=== PATIENT | female | born 1980 | race Caucasian/White ===

== ENCOUNTER 2023-04-23 11:09 | Outpatient (OUT) | payer OTHER, SELFPAY ==
--- NOTE | 2023-04-23 | XR_ITS ---
The [address] [address] Patient Name: STEFANIE PASCUAL MRN: [id number] date: 1980 Sex: F Assigned Patient Location: [facility] Current Patient Location: [facility] Accession/Order Number: [id number] Exam Date: 04/23/2023 11:48 Report Date: 04/23/2023 12:41 At the request of: RENARD RICHARDSON Procedure: XR foot NIR min 3V EXAMINATION: XR foot NIR min 3V HISTORY: BILATERAL FOOT PAIN COMPARISON: No relevant comparison available. FINDINGS: RIGHT FINDINGS: BONES: Normal. No significant arthropathy or acute abnormality. Minimal plantar enthesopathic spurring of the calcaneus SOFT TISSUES: Negative. No visible soft tissue swelling. OTHER: Negative. LEFT FINDINGS: BONES: Normal. No significant arthropathy or acute abnormality. SOFT TISSUES: Negative. No visible soft tissue swelling. OTHER: Negative. XR/XR foot NIR min 3V IMPRESSION: RIGHT CONCLUSION: Minimal plantar enthesopathic spurring of the calcaneus LEFT CONCLUSION: No acute abnormality Electronically authenticated by: MAYRA DELUCA Date: 04/23/2023 12:41
== END 2023-04-23 11:10 | disposition home or self-care (01) ==
LOC: RAD 11:09
PROVIDERS: PCP Nurse Practitioner Family; Visit Provider Podiatrist Foot & Ankle Surgery
DX: M79.671 Pain in right foot (principal); M79.672 Pain in left foot
CPT/HCPCS: 73630

== ENCOUNTER 2023-05-07 06:54 | Outpatient (RCR) | payer OTHER, SELFPAY | END 2023-06-04 15:41 | disposition home or self-care (01) | LOC: PT 06:54 | PROVIDERS: PCP Nurse Practitioner Family; Visit Provider Podiatrist Foot & Ankle Surgery | DX: M76.62 Achilles tendinitis, left leg (principal); M72.2 Plantar fascial fibromatosis; M79.671 Pain in right foot; M79.672 Pain in left foot | CPT/HCPCS: 97010; 97014; 97035; 97110; 97140; 97161 ==

== ENCOUNTER 2025-03-01 07:22 | Outpatient (OUT) | payer OTHER, SELFPAY ==
--- OUTSIDE RECORDS SUMMARY | 2025-02-15 08:00 | XMS_ITS ---
Author Organization The [facility] in [place] Address [address] [place] [address] Care Team Providers Care Tail Edger Name Role Phone Saskia Fry Primary Care Provider Allergies Allergen (clinical drug ingredient) Drug/Non Drug Allergy documented on EMR Reaction Allergy Type Onset Date Status Bee StingUnknownAllergyActive REASON FOR VISIT Wellness, Self Pay Medications Medication SIG (Take, Route, Frequency, Duration) Notes Start Date End Date Status Sertraline HCl 100 MG 1.5 tablet Orally Once a d ay; Duration: 30 days Active Social History Tobacco Use: Social History Observation Description Date Details (start date - stop date) Never Smoker NA - NA Tobacco Use/Smoking Question Answer Notes Patient is a nonsmoker AUDIT-C (Standard) Question Answer Notes Did you have a drink containing alcohol in the p ast year? No Rmqcnn9VzxvyytmopxsfnNstpundv Problems Problem Type SNOMED Code ICD Code Onset Dates Problem Status W/U Status Risk Notes Problem Mixed anxiety and de pressive disorder (279352665) Anxiety and depression (F41.8) Activeconfirmed Vital Signs Weight 144.0 lbs 02/15/2025 Height 61 in 02/15/2025 Blood pressure systolic 122 mm Hg 02/16/20 25 Blood pressure diastolic 82 mm Hg 025 BMI 27.21 kg/m2 02/15/2025 Encounters Encounter Location Date Provider Diagnosis [facility] [address] [place] [address] 02/15/2025 Saskia Fry Wellness examination Z00.00 and Anxiety and depression F41.8 Assessments Encounter Date Diagnosis (ICD Code) Assessment Notes Treatment Notes Treatment Clinical Notes Section Notes 02/15/2025 Wellness examination (ICD-10 - Z 00.00) ROS done exam done encouraged mammogram and pap 02/15/2025nxiety and depression (ICD-10 - F41.8) continue medication feeling well Plan Of Treatment Medication Medication Name Sig Start Date Stop Date Notes Sertraline HCl 100 MG 1.5 tablet Orally Once a d ay; Duration: 30 days Treatment Notes Assessment Notes Wellness examination ROS done exam done encouraged mammogram and pap Anxiety and depression continue medication feeling well Pending Test Test Name Order Date HEMOGLOBIN A1C (GLYCO) 02/15/2025 IRON, TOTAL 02/15/2025 LIPID PANEL (CHOL/TRIG/HDL/LDL) 02/16/20 25 VITAMIN D, 25 LEVEL (TOTAL) 02/15/2025 Insulin Level 02/15/2025 VITAMIN B12 02/15/2025 THYROID PANEL (T4/TSH/FREE T3) Vitamin D 02/15/2025 CMP (COMP MET DOMINGUEZ) w/eGFR CKD-EPI 2024 CBC WITH DIFF 02/15/2025 Next Appt Details Follow Up: 1 Year,prn, Reaso n: Progress Notes * Catherine MORTON VDOB:[birth year] (44 yo F)Acc No.[id number]:02/15/2025 Progress Note Patient: Catherine HARDWICK V :?Saskia Fry ([facility]), CNPDOB:1980 ???Age:44 Y???Sex:FemaleDate:02/15/2025Phone:[phone]:[address] [place], [place] [id number] In:01:10 PM ESTCheck Out:01:30 PM EST Subjective: * Chief Complaints: * 1 . Wellness. 2. Self Pay. * HPI: ???General:? 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 * ROS: ???General/Constitutional:?Fever?denies.?Headache?denies.?Weight loss denies.?Ophthalmologic:?Discharge?denies.?Eye Pain?denies.?Itching and redness?denies.?ENT:?Nasal discharge?denies.?Nasal congestion?denies. Sore throat?denies.?Cardiovascular:?Chest tightness/ heavy pressure?denies.?Rapid heart rate?denies.?Swelling of extremities?denies.?Chest pain?denies.?Respiratory:?Productive cough?denies.?Chest pain?denies.?Cough?denies.?Shortness of breath?denies.?Wheezing?denies.?Gastrointestinal:?Abdominal pain?denies.?Constipation?admits, chronic.?Decreased appetite?denies.?Diarrhea?denies.?Nausea?denies. Vomiting?denies.?Genitourinary:?Urinary incontinence?denies.?Painful urination?denies.?Musculoskeletal:?Back pain?denies.?Neck pain?denies.?Muscle aches?denies.?Skin:?Rash?denies.?Skin lesion(s)?denies.? * Active Problem List F32.9 Depression Modified On:02/07/2023U Status:wfqrrmgesA20.9Anxiety disorder, unspecified Modified On:02/08/2023U Status:gvlttffroY63.671Pain in right foot Modified On:04/23/2023U Status:figmahphuS76.672Pain in left foot Modified On:04/23/2023U Status:cubqfvgmfV36.2Plantar fascial fibromatosis Modified On:04/23/2023/U Status:xbebbejhhX84.62Achilles tendinitis, left leg Modified On:01/30/2024W/U Status:chhlegfxzD70.61Achilles tendinitis, right leg Modified On:04/23/2023/U Status:pmdtmgbivD29.572Contracture, left ankle Modified On:04/23/2023/U Status:unglapavqS33.571Contracture, right ankle Modified On:04/23/2023W/U Status:bxvxeuajuI02.8Anxiety and depression Modified On:02/15/2025W/U Status:confirmed * Medical History: S ore throat, Depression. * Surgical History: h ysterectomy 10/2020, cystoscopy 10/2020. * Hospitalization/Major Diagno stic Procedure: D enies Past Hospitalization. * Family History: F ather: alive 74 yrs. M other: alive 73 yrs. S ister(s): alive. S on(s): alive.?Daughter(s): alive. 1 sister(s) - healthy. 1 son(s) , 2 daughter(s) - healthy. . * Social History: ???Tobacco Use:?Tobacco Use/Smoking?Patient is a?nonsmoker ???Drug/Alcohol:?AUDIT-C (Standard)?Did you have a drink containing alcohol in the past year??No ?Points?0 ?Interpretation?Negative * Medications: T aking Sertraline HCl 100 MG Tablet 1.5 tablet Orally Once a day , Discontinued Meloxicam 15 MG Tablet 1 tablet Orally Once a day , Medication List reviewed and reconciled with the patient * Allergies: B ee Sting. Objective: * Vitals: W t:144.0lbs, Ht: 61 in, BP:122/82mm Hg, BMI:27.21Index, Ht-cm: 154.94 cm, Wt-k.32 kg. * Examination: ???General Examinations: ?GENERAL APPEARANCE:?alert and oriented,?in no acute distress.?EYES:?conjunctiva normal, sclera non-icteric.?EARS:?external auditory canals are patent. Tympanic membranes are pearly cartagena and mobile.?NOSE:?normal external appearance.?LUNGS:?clear to auscultation bilaterally.?CARDIO:?regular rate and rhythm, S1, S2 normal, no murmurs, no edema.?ABDOMEN:?soft, nontender.?MUSCULOSKELETAL:?Gait and station normal.?SKIN:?warm and dry.? Assessment: * Assessment: 1.?Anxiety and depression - F41.8 (Primary)???2.?Wellness examination - Z00 .00??? Plan: * Treatment: Refill Sertraline HCl Tablet, 100 MG, 1.5 tablet, Orally, Once a day, 30 days, 45 Tablet, Refills 11.?? Notes: continue medication feeling well??2.?Wellness examination?LAB: HEMOGLOBIN A1C (GLYCO) ?LAB: IRON, TOTAL ?LAB: LIPID PANEL (CHOL/TRIG/HDL/LDL) ?LAB: VITAMIN D, 25 LEVEL (TOTAL) ?LAB: Insulin Level ?LAB: VITAMIN B12 ?LAB: THYROID PANEL (T4/TSH/FREE T3) ?LAB: Vitamin D ?LAB: CMP (COMP MET DOMINGUEZ) w/eGFR CKD-EPI ?LAB: CBC WITH DIFF Notes: ROS done exam done encouraged mammogram and pap?? * Procedure Codes: 3 079F DIAST BP 80-89 MM HG, 3074F SYST BP LT 130 MM HG * Preventive Medicine: ??Screenings/Counseling:?BMI ACTION PLAN?Above Normal BMI Follow-up?Dietary management education, guidance, and counseling * Follow Up: 1 Year,prn * * Electronically signed by Saskia Fry PATIENT CARRIER, OPEN CLAIMS REPRESENTATIVE.CARD CUTTER HELPER.[id number] on 02/17/2025 at 08:55 AM ESTSign off status: CompletedVisit Status:?CHK (Check Out) true * Provider: Renee Fry (TTC), CARD CUTTER HELPER Date: 04/17/2024 Generated for Printing/Faxing/eTransmitting on:?03/01/2025 07:30 AM EST History and Physical Notes * HPI (History of Present Illness) CategorySub-CategoryDetailNotesCategory 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 Tympanic membranes are pearly cartagena and mobileNOSE:normal external appearanceTHROAT:CARDIO:regular rate and rhythm, S1, S2 normal, no murmurs, no edemaLUNGS:clear to auscultation bilaterallyABDOMEN:soft, nontenderSKIN:warm and dryBACK:MUSCULOSKELETAL:Gait and station normalLYMPH NODES:
--- OUTSIDE RECORDS SUMMARY | 2025-03-01 07:29 | XMS_ITS | CCD ---
Author Organization [facility] CliniSymt Care Team Providers Care Export Sales Assistant Name Role Phone YOBANI CASTRO Admitting Unavailable YOBANI CASTRO Attending Unavailable YOBANI CASTRO Primary Care Unavailable DR LAYO ADAN Consulting Unavailable YOBANI CASTRO Consulting Unavailable Allergies Allergy ClassificationReported Allergen(s)Allergy TypeDate of OnsetReaction(s) Facility (1 source)bee venomDrug allergy (disorder)[facility] Repository Problems Problem ClassificationProblemDateDocumented DateEpisodic/ChronicOther screening for suspected conditions (not mental disorders or infectious disease) (4 sources)Encounter for screening mammogram for malignant neoplasm of breast; Translations: [ENC SCR MAMMO MALIG NEOPLASM BREAST]Onset: 14-73-2457Gswudaga Results Test NameValueInterpretationReference RangeFacilityMG MAMM SCREEN 3D NIR CADon [id number] MAMM SCREEN 3D NIR CADPatient: STEFANIE PASCUAL V. Exam Date: 08/02/2022 : 1980 Gender:F Ordering : YOBANI CASTRO [facility] Admission #: [id number] Family : Order #: [id number] CLICK HERE TO VIEW EXAM RADIOLOGY REPORT PROCEDURE: MAMMOGRAM SCREENING 3D BILATERAL CAD COMPARISON: MG MAMM SCREEN NIR W CAD, 10/21/2018. MG MAMM SCREEN 3D NIR CAD, 09/12/2020. INDICATIONS: Screening mammography Calculator Name NCI Breast Cancer Risk Assessment Tool 5 Year Breast Cancer Risk Not Reported. Lifetime Breast Cancer Risk Not Reported. Personal Breast Cancer No Personal Ovarian Cancer No Treatments None Family Cancers None LOCATION: [facility] BREAST COMPOSITION: Heterogeneously dense,which may obscure small masses. FINDINGS: DIAGNOSTIC CATEGORY 1--NEGATIVE. RIGHT BREAST: No significant suspicious finding. No significant change has occurred. LEFT BREAST: No significant suspicious finding. No significant change has occurred. RECOMMENDATIONS: ROUTINE MAMMOGRAM AND CLINICAL EVALUATION IN 12 MONTHS. PLEASE NOTE: A NORMAL MAMMOGRAM DOES NOT EXCLUDE THE POSSIBILITY OF BREAST CANCER. A CLINICALLY SUSPICIOUS PALPABLE LUMP SHOULD BE BIOPSIED. Dictated by: Layo Adan M.D. on 08/03/2022 at 06:58 Approved by: Layo Adan M.D. on 08/03/2022 at 07:01[facility] HospitalPhys[facility] Referralon [id number] Referral [id number]#1.00CD:[address] [place], [place] [address]Operative Reporton [id number] Report [id number]#1.00CD:[address] [place] [address] Encounters Encounter DateEncounter TypeCare ProviderFacilityStart: 08-02-2022 End: 20-68-5591qpbjghxvwnDAIGML CRAMERFacility:H1 Payers DatePayer CategoryPayerPolicy [id number] Summary Purpose Family History No Family History Records FoundNo Family History Records Found Advance Directives No Advanced Directives Records FoundNo Advanced Directives Records Found Additional Source Comments INFORMATION SOURCE (unrecogn ized section and content) DATE CREATED AUTHOR 12/10/2020 [facility] DATE CREATED AUTHOR AUTHOR'S ORGANIZ ATION 08/06/2022 [facility] FOR RECORDS PERTAINING TO PATIENTS WHO ARE OR HAVE BEEN ENROLLED IN A CHEMICAL DEPENDENCY/SUBSTANCEABUSE PROGRAM, SOME INFORMATION MAY BE OMITTED. This clinical summary was aggregated from multiple sources. Caution should be exercised in using it in the provision of clinical care. This summary normalizes information from multiple sources, and as a consequence, information in this document may materially change the coding, format and clinical context of patient data. In addition, data may be omitted in some cases. CLINICAL DECISIONS SHOULD BE BASED ON THE PRIMARY CLINICAL RECORDS. [facility] [employer] provides no warranty or guarantee of the accuracy or completeness of information in this document.
--- OUTSIDE RECORDS SUMMARY | 2025-03-01 07:31 | XMS_ITS | Clinical Summary ---
Author Organization [facility] [facility] Address [id number] [place] [address] Care Team Providers Care Halal Butcher Name Role Phone Unavailable Primary Care Provider Unavailabl e Allergies No known active allergies Medications MedicationSigDispense QuantityRefillsLast FilledStart DateEnd DateStatus sertraline (ZOLOFT) 100 mg tablet 1 tablet Orally Once a day for 30 daysActive Active Problems No known active problems Social History Tobacco UseTypesPacks/DayYears UsedDateSmoking Tobacco: NeverSmokeless Tobacco: Never Tobacco Cessation:Counseling Given: Not Answered Alcohol UseStandard Drinks/WeekCommentsNever0 (1 standard drink = 0.6 oz pure alcohol)PHQ-2AnswerDate RecordedTotal Odpem7753ChildcareAnswerDate XmwnzlvoAfzittvzjYkwrrfq75/12/2019EmploymentAnswerDate RecordedEmploymentUnknown 09/03/2018Hunger ScreeningAnswerDate RecordedWithin the past 12 months we worried whether our food would run out before we got money to buy more.Never True12/03/2022Within the past 12 months the food we bought just didn't last and we didn't have money to get more.Never True3CommentsUnknownSex and Gender InformationValueDate RecordedSex Assigned at BirthNot on fileLegal NdaKhjuum68/06/2015 12:05 PM EDTGender IdentityNot on fileSexual OrientationNot on file Last Filed Vital Signs Vital SignReadingTime TakenCommentsBlood Aruakhku793/7809 4:01 PM EDT Sezrh024512/03/2022 4:01 PM CKFKupgyygowyw66.3 ??C (97.3 ??F)12/03/2022 4:01 PM EDTRespiratory Ymzi920112/03/2022 4:01 PM EDTOxygen Kvsyxezcaw09%12/03/2022 4:01 PM EDTInhaled Oxygen Concentration--Zqzusu67.8 kg (145 lb)12/03/2022 4:01 PM EDT Ysymex114.9 cm (5' 1 )12/03/2022 4:01 PM EDTBody Mass Index27.409 4:01 PM EDT Plan of Treatment Health MaintenanceDue DateLast DoneCommentsTobacco Okxklecfm81/17/1992Pap Smear 08/08/2000Adult BMI Pswnsegdu64/3Depression Vtsttmela17/11/2024 3COVID-19 Vaccine ( season)/08/2020, 12/07/2020 Influenza Ffmsyzn4711/23/2024DTaP,Tdap and Td Vaccines (2 - Td or Tdap)10/26/2026 10/26/2016 Medical Devices Not on file
--- OUTSIDE RECORDS SUMMARY | 2025-03-01 07:31 | XMS_ITS | Patient Health Record ---
Author Organization [facility] in [place] Address [address] [place] [address] Care Team Providers Care Cemetery Keeper Name Role Phone Saskia Fry Primary Care Provider Allergies Allergen (clinical drug ingredient) Drug/Non Drug Allergy documented on EMR Reaction Allergy Type Onset Date Status Bee StingUnknownAllergyActive Reason For Referral No Information Medications Medication SIG (Take, Route, Frequency, Duration) Notes Start Date End Date Status Sertraline HCl 100 MG 1.5 tablet Orally Once a d ay; Duration: 30 days Active Social History Tobacco Use: Social History Observation Description Date Details (start date - stop date) Never Smoker NA - NA Tobacco Use/Smoking Question Answer Notes Patient is a nonsmoker Alcohol Screen (Audit-C) Question Answer Notes Did you have a drink containing alcohol in the p ast year? No Ghwfap3PybujliwifuxywYmamtkqjKVBBH-H (Standard) Question Answer Notes Did you have a drink containing alcohol in the p ast year? No Dsmran2RxysduqkoxgtoyWrlodzqm Problems Problem Type SNOMED Code ICD Code Onset Dates Problem Status W/U Status Risk Notes Problem Anxiety disorder (621841927) Anxiety diso rder, unspecified (F41.9) ActiveconfirmedProblemContracture of joint of right ankle (disorder) (367349042360719)Contracture, right ankle (M24.571)ActiveconfirmedProblem Contracture of joint of left ankle (disorder) (494436554020203)Contracture, left ankle (M24.572)ActiveconfirmedProblemPlantar fascial fibromatosis (29146626) Plantar fascial fibromatosis (M72.2)ActiveconfirmedBilateralProblemAchilles bursitis (994797395)Achilles tendinitis, right leg (M76.61)Activeconfirmed ProblemAchilles bursitis (499887108)Achilles tendinitis, left leg (M76.62)Active confirmedProblemPain in right foot (618975350441522)Pain in right foot (M79.671) ActiveconfirmedProblemPain in left foot (036140869367999)Pain in left foot (M79.672)ActiveconfirmedProblemDepression (502929338)Depression (F32.9)Active confirmedProblemMixed anxiety and depressive disorder (309451141)Anxiety and depression (F41.8)Activeconfirmed Vital Signs Blood pressure diastolic 82 mm Hg 02/15/2025 Kzgvyu28 in02/15/2025lood pressure xankwhor335 mm Hg02/15/20250355Rmfsxb615.0 lbs 02/15/2025BMI27.21 kg/m202/15/2025 Encounters Encounter Location Date Provider Diagnosis [address] [address] 02/15/2025 Saskia Fry Wellness examination Z00.00 and Anxiety and depression F41.[address] [address] 02/04/2025 Saskia Fry Anxiety disorder, unspecified F41.9 Assessments Encounter Date Diagnosis (ICD Code) Assessment Notes Treatment Notes Treatment Clinical Notes Section Notes 02/15/2025 Wellness examination (ICD-10 - Z 00.00) ROS done exam done encouraged mammogram and pap 02/15/2025nxiety and depression (ICD-10 - F41.8) continue medication feeling well 02/04/2025nxiety disorder, unspecified (ICD-10 - F41.9) Plan Of Treatment Pending Test Test Name Order Date CMP (COMPLETE METABOLIC PANEL) 3 HEMOGLOBIN A1C (GLYCO) 10/29/2022 HEMOGLOBIN A1C (GLYCO) 02/15/2025 IRON, TOTAL 02/15/2025 LIPID PANEL (CHOL/TRIG/HDL/LDL) 02/16/20 25 LIPID PANEL (CHOL/TRIG/HDL/LDL) 10/30/19 23 CBC WITH DIFF (EXP 01/2025) 10/29/2022 VITAMIN D, 25 LEVEL (TOTAL) 02/15/2025 Insulin Level 02/15/2025 VITAMIN B12 02/15/2025 THYROID PANEL (T4/TSH/FREE T3) 5 THYROID PANEL (T4/TSH/FREE T3) 3 Vitamin D 02/15/2025 CMP (COMP MET DOMINGUEZ) w/eGFR CKD-EPI 2024 CBC WITH DIFF 02/15/2025 Insurance Providers Payer Name Payer Address Payer Phone Subscriber Number Group Number Insured Name Patient Relationship to Insured Coverage Start Date Coverage End Date [email or web address] [address] [address] [place], [place] [address] [id number] Pond - patient is the spouse of the insured Medical (General) History Medical History History ICD Code Sore throat J02.9 Depression F32.9 Surgical History Surgery Date(Month/Year) cystoscopy 10/2020 hysterectomy 10/2020
--- OUTSIDE RECORDS SUMMARY | 2025-03-01 07:31 | XMS_ITS | Clinical Summary ---
Author Organization [facility] Address [address] [place] [address] Care Team Providers Care Pigment Processor Name Role Phone Unavailable Primary Care Provider Unavailabl e Social History Tobacco UseTypesPacks/DayYears UsedDateSmoking Tobacco: Never Assessed CommentsUnknownSex and Gender InformationValueDate RecordedSex Assigned at Not on fileLegal WhpFezrwp57/15/2023 7:26 PM EDTGender IdentityNot on fileSexual OrientationNot on file Last Filed Vital Signs Vital SignReadingTime TakenCommentsBlood Ejoylhmg279/6808 12:00 PM EDT Pulse--Temperature--Respiratory Rate--Oxygen Saturation--Inhaled Oxygen Concentration--Xjtcbb30.4 kg (142 lb)10/23/2018 12:00 PM UGPRuuvnt683.9 cm (5' 1 )10/23/2018 12:00 PM EDTBody Mass Index26.8310/23/2018 12:00 PM EDT Plan of Treatment Not on file
[2025-03-01 07:55] LABS: Hematocrit 40.6 % (36.0-48.0); Hemoglobin 13.9 g/dL (12.0-16.0); Immature Granulocytes Abs Auto 0.01 10^3/uL (0.00-0.03); Immature Granulocytes Pct Auto 0.2 % (0.0-0.5); Lymphocytes Absolute Auto 2.1 10^3/uL (1.2-3.8); Mean Corpuscular HGB Conc 34.2 g/dL (29.9-35.2); Mean Corpuscular Hemoglobin 30.6 pg (26.7-34.0); Mean Corpuscular Volume 89.4 fL (81.0-99.0); Platelet Count 258 10^3/uL (150-450); Red Blood Count 4.54 10^6/uL (4.20-5.40); White Blood Count 5.3 10^3/uL (4.0-11.0)
[2025-03-01 09:41] LABS: Iron 66.0 ug/dL (50.0-170.0)
[2025-03-01 09:56] LABS: Alanine Aminotransferase 29 U/L (14-59); Albumin Globulin Ratio 1.3; Albumin Level 4.0 g/dL (3.4-5.0); Alkaline Phosphatase 50 U/L (46-116); Anion Gap 7.6; Aspartate Amino Transferase 15 U/L (15-37); Blood Urea Nitrogen 12.0 mg/dL (7.0-18.0); Calcium 9.0 mg/dL (8.5-10.1); Carbon Dioxide 30.4 mmol/L (21.0-32.0); Chloride 103 mmol/L (98-107); Cholesterol 189 mg/dL (<=200); Estimated GFR (African America >60 (>=60 mL/min/1.73m^2); Estimated GFR (Non-African Ame >60 (>=60 mL/min/1.73m^2); Free T3 2.32 pg/mL (2.18-3.98); Globulin 3.1 g/dL; Glucose 87 mg/dL (74-106); HDL Cholesterol 54 mg/dL (40-60); Potassium 4.0 mmol/L (3.5-5.1); Sodium 137 mmol/L (136-145); Thyroid Stimulating Hormone 3.105 uIU/mL (0.358-3.740); Total Protein 7.1 g/dL (6.4-8.2); Triglycerides 49 mg/dL (<=150); VLDL CHOLESTEROL 9.8 mg/dL
[2025-03-02 04:08] LABS: Vitamin B12 379 pg/mL (232-1245)
== END 2025-03-01 07:23 | disposition home or self-care (01) ==
PROVIDERS: PCP Nurse Practitioner Family; Visit Provider Nurse Practitioner Family
DX: Z00.00 Encounter for general adult medical examination without abnormal findings (principal); E78.5 Hyperlipidemia, unspecified; R73.09 Other abnormal glucose; D64.9 Anemia, unspecified; E03.9 Hypothyroidism, unspecified; E55.9 Vitamin D deficiency, unspecified; I10 Essential (primary) hypertension; D50.9 Iron deficiency anemia, unspecified; E53.8 Deficiency of other specified B group vitamins
CPT/HCPCS: 36415; 80053; 80061; 82306; 82607; 83036; 83525; 83540; 84436; 84443; 84481; 85025